=== PATIENT | male | born 1970 | race Hispanic/Latino ===

== ENCOUNTER 2021-11-05 03:50 | Inpatient (IN) | payer OTHER ==
[~2021-11-05] VITALS: Ht 165.1 cm; Wt 89.7 kg
[2021-11-05] MEDS ORDERED: ONDANSETRON 4MG INJ IVP ONE (06:00)
[2021-11-05] MEDS ORDERED: MORPHINE 4 MG SYG IVP ONE ×2 (06:00→07:00)
[2021-11-05] MEDS ORDERED: KETOROLAC 15MG/ML VIAL (15MG/ML) IV ONE (06:00)
[2021-11-05 06:01] LABS: BASOPHILS % (AUTO) 0.5 % (0.0-5.0); HEMATOCRIT 43.1 % (42-54); LYMPHOCYTES % (AUTO) 36.6 % (21.0-51.0); MEAN CORPUSCULAR HEMOGLOBIN 29.5 pg (27.0-33.0); MEAN CORPUSCULAR HGB CONC 34.3 g/dL (32.0-36.0); MEAN CORPUSCULAR VOLUME 85.9 fL (79-99); MONOCYTES % (AUTO) 7.5 % (3.0-13.0); PLATELET COUNT (AUTO) 157 K/uL (130-400); RED BLOOD CELL COUNT(AUTO) 5.02 MIL/uL (4.50-6.20); RED CELL DISTRIBUTION WIDTH 13.6 % (11.0-15.5); WHITE BLOOD COUNT (AUTO) 9.2 K/uL (4.8-10.8)
[2021-11-05 06:20] LABS: ALBUMIN 3.8 g/dL (3.5-5.0); BILIRUBIN,TOTAL 0.4 mg/dL (0.2-1.0); CREATININE 0.9 mg/dL (0.5-1.5); TOTAL PROTEIN, SERUM 8.8 g/dL (6.0-8.3)
[2021-11-05] MEDS ORDERED: ONDANSETRON 4MG INJ IV PRN (12:00)
[2021-11-05] MEDS ORDERED: MORPHINE 2 MG SYG IV PRN (12:00)
[2021-11-05] MEDS ORDERED: LACTULOSE 20 GM/30 ML UDCUP PO PRN (12:00)
[2021-11-05] MEDS ORDERED: ACETAMINOPHEN 325 MG TAB PO PRN ×2 (12:00)
[2021-11-05] MEDS ORDERED: HYDROMORPHONE 1 MG INJ IV PRN (12:00)
[2021-11-05] MEDS: GABAPENTIN 300 MG CAPSULE PO SCH ×2 (12:10→21:07)
[2021-11-05] MEDS: LIDOCAINE 5% TOPICAL PATCH TP SCH (12:10)
[2021-11-05] MEDS: DEXAMETHASONE SOD PHOSPHATE 4 MG/ML 1ML VIAL IV SCH ×2 (14:01→21:07)
[2021-11-05] MEDS: BACLOFEN 10 MG TABLET PO SCH ×2 (14:51→21:58)
[2021-11-05] MEDS: MORPHINE 4 MG SYG IV PRN (20:02)
[2021-11-05] MEDS: BISACODYL 5 MG TABLET.DR PO SCH (21:07)
[2021-11-05] MEDS: FAMOTIDINE 20MG VIAL IV SCH (21:07)
[2021-11-05] MEDS ORDERED: LOSA50TA64 PO (21:45)
[2021-11-05] MEDS ORDERED: METF-444 PO (21:45)
[2021-11-05] MEDS ORDERED: LABETALOL 20MG SYG IV ONE ×2 (22:30→22:55)
[2021-11-06 00:35] VITALS: BP 151/107
[2021-11-06] MEDS: MORPHINE 4 MG SYG IV PRN ×3 (01:26→14:51)
[2021-11-06 04:25] VITALS: BP 123/69
[2021-11-06 08:00] VITALS: BP 134/87
[2021-11-06] MEDS: FAMOTIDINE 20MG VIAL IV SCH ×2 (09:03→21:06)
[2021-11-06] MEDS: GABAPENTIN 300 MG CAPSULE PO SCH ×2 (09:04→21:07)
[2021-11-06] MEDS: BISACODYL 5 MG TABLET.DR PO SCH ×2 (09:06→21:00)
[2021-11-06] MEDS: BACLOFEN 10 MG TABLET PO SCH ×3 (09:06→21:07)
[2021-11-06] MEDS: DEXAMETHASONE SOD PHOSPHATE 4 MG/ML 1ML VIAL IV SCH ×3 (09:06→21:06)
[2021-11-06] MEDS: LIDOCAINE 5% TOPICAL PATCH TP SCH (09:06)
[2021-11-06 12:00] VITALS: BP 140/72
[2021-11-06 16:00] VITALS: BP 146/99
[2021-11-06] MEDS ORDERED: GLUCAGON 1MG KIT 1 MG ML IM PRN (16:30)
[2021-11-06] MEDS ORDERED: TRAMADOL HCL 50 MG TABLET PO PRN (16:30)
[2021-11-06] MEDS ORDERED: DEXTROSE 50%-WATER 50 ML DISP.SYRIN IV PRN (16:30)
[2021-11-06] MEDS: INSULIN HUMULIN R 100 UNIT/ML 3ML SQ SCH ×2 (17:42→21:17)
[2021-11-06] MEDS: METFORMIN HCL 500 MG TABLET PO SCH (17:42)
[2021-11-06 20:41] VITALS: BP 175/106
[2021-11-06] MEDS ORDERED: GABAPENTIN 300 MG CAPSULE PO SCH (21:00)
[2021-11-06] MEDS: TRAMADOL HCL 50 MG TABLET PO PRN (21:08)
[2021-11-07 01:05] VITALS: BP 161/96
[2021-11-07 04:25] VITALS: BP 161/77
[2021-11-07] MEDS ORDERED: LOSARTAN 50 MG TABLET PO SCH ×2 (06:30→12:00)
[2021-11-07] MEDS: INSULIN HUMULIN R 100 UNIT/ML 3ML SQ SCH ×2 (06:49→12:48)
[2021-11-07 08:00] VITALS: BP 166/110
[2021-11-07] MEDS: BACLOFEN 10 MG TABLET PO SCH ×2 (09:33→12:51)
[2021-11-07] MEDS: GABAPENTIN 300 MG CAPSULE PO SCH (09:33)
[2021-11-07] MEDS: METFORMIN HCL 500 MG TABLET PO SCH (09:34)
[2021-11-07] MEDS: LIDOCAINE 5% TOPICAL PATCH TP SCH (09:34)
[2021-11-07] MEDS: FAMOTIDINE 20MG VIAL IV SCH (09:34)
[2021-11-07] MEDS: BISACODYL 5 MG TABLET.DR PO SCH (09:34)
[2021-11-07] MEDS: TRAMADOL HCL 50 MG TABLET PO PRN (09:41)
[2021-11-07 12:00] VITALS: BP 175/105
[2021-11-07] MEDS ORDERED: GABA300C PO (12:00)
[2021-11-07] MEDS ORDERED: BISA5TAB12 PO (12:00)
[2021-11-07] MEDS ORDERED: BACL5TAB PO (12:00)
[2021-11-07] MEDS ORDERED: TRAM50TA4 PO (12:00)
[2021-11-07] MEDS ORDERED: METF-444 PO (12:00)
[2021-11-07] MEDS ORDERED: HYDR25TA PO (12:00)
[2021-11-07] MEDS ORDERED: HYDROCHLOROTHIAZIDE 25 MG TABLET PO SCH (12:00)
[2021-11-07] MEDS ORDERED: LOSA50TA2 PO (12:00)
[2021-11-07 12:16] LABS: HEMOGLOBIN A1C 7.9 % (4.0-6.0)
[2021-11-07 13:00] VITALS: BP 156/98
[2021-11-07 14:30] VITALS: BP 142/86
[2021-11-07] MEDS ORDERED: METFORMIN HCL 500 MG TABLET PO SCH (17:00)
[2021-11-08] MEDS ORDERED: LOSARTAN 50 MG TABLET PO SCH (09:00)
[2021-11-08] MEDS ORDERED: HYDROCHLOROTHIAZIDE 25 MG TABLET PO SCH (09:00)
== END 2021-11-07 14:54 | disposition home or self-care (01) | DRG 552 ==
LOC: EDH 03:50 → EDHIP 03:51 → 4BH 11-06 00:35
PROVIDERS: ADMIT Internal Medicine; ATTEND Internal Medicine
DX: S22.088A Other fracture of T11-T12 vertebra, initial encounter for closed fracture (principal); E11.65 Type 2 diabetes mellitus with hyperglycemia; E78.5 Hyperlipidemia, unspecified; I10 Essential (primary) hypertension; M45.9 Ankylosing spondylitis of unspecified sites in spine; E66.9 Obesity, unspecified; Z20.822 Contact with and (suspected) exposure to COVID-19; G89.29 Other chronic pain; W18.39XA Other fall on same level, initial encounter; F17.200 Nicotine dependence, unspecified, uncomplicated; Z68.32 Body mass index [BMI] 32.0-32.9, adult; Y93.89 Activity, other specified; Y92.89 Other specified places as the place of occurrence of the external cause; Y99.8 Other external cause status
CPT/HCPCS: 36415; 72128; 72131; 80053; 82948; 83036; 85025; 87635; 97039; G0378; J1100; J1170; J1815; J1885; J2270; J2405; J3490